=== PATIENT | female | born 1970 | race Two or more races ===

== ENCOUNTER 2017-10-18 15:27 | Emergency (ER) | payer SELFPAY ==
[~2017-10-18] VITALS: Ht 152.4 cm; Wt 62.6 kg
--- NOTE | 2017-10-18 15:34 | NUR ---
AAOX3, BIBRA 89 C/O MIDSTERNAL CHEST PAIN RADIATES TO BACK. RR IS EVEN AND UNLABORED WITH NAD NOTED. SKIN IS WARM AND DRY. PLACED ON THE MONITOR. AWAITING MD FOR EVAL.
[2017-10-18] MEDS ORDERED: KETOROLAC TROMETHAMINE INJ 30 MG/ML VIAL ONE (16:17)
[2017-10-18 16:19] LABS: BASOPHILS % (AUTO) 0.6 % (0.0-2.0); EOSINOPHILS # (AUTO) 0.1 /CMM (0.0-0.7); EOSINOPHILS % (AUTO) 0.9 % (0.0-6.0); HEMATOCRIT 40 % (33-45); HEMOGLOBIN 13.4 g/dL (11.5-14.8); LYMPHOCYTES # (AUTO) 2.9 /CMM (0.8-4.8); LYMPHOCYTES % (AUTO) 37.1 % (20.0-44.0); MEAN CORPUSCULAR HEMOGLOBIN 30 PG (26.0-33.0); MEAN CORPUSCULAR HGB CONC 34 g/dl (31.0-36.0); MEAN CORPUSCULAR VOLUME 89 fL (82-100); MONOCYTES # (AUTO) 0.5 /CMM (0.1-1.30); MONOCYTES % (AUTO) 6.8 % (2.0-12.0); NEUTROPHILS # (AUTO) 4.3 /CMM (1.8-8.9); NEUTROPHILS % (AUTO) 54.6 % (43.0-81.0); PLATELET COUNT (AUTO) 255 /CMM (150-450); RDW COEFFICIENT OF VARIATION 12.1 (11.5-15.0); RED BLOOD CELL COUNT(AUTO) 4.46 MIL/uL (4.0-5.2); WHITE BLOOD COUNT (AUTO) 7.8 K/uL (4.3-11.0)
[2017-10-18] MEDS ORDERED: QUET25TA PO (16:23)
[2017-10-18] MEDS ORDERED: SERT50TA PO (16:23)
[2017-10-18] MEDS ORDERED: PANT40TA4 PO (16:23)
[2017-10-18] MEDS ORDERED: ALLO100T PO (16:23)
[2017-10-18] MEDS ORDERED: ATOR20TA PO (16:23)
[2017-10-18] MEDS ORDERED: ALBU1.257 IH (16:23)
[2017-10-18] MEDS ORDERED: ASPI-1152 PO (16:23)
[2017-10-18] MEDS ORDERED: CHOL200026 PO (16:23)
[2017-10-18] MEDS ORDERED: TIOT18CA3 IH (16:23)
[2017-10-18] MEDS ORDERED: PRED20TA PO (16:23)
[2017-10-18] MEDS ORDERED: MIRT7.5T10 PO (16:23)
[2017-10-18] MEDS ORDERED: METO-356 PO (16:23)
[2017-10-18 16:28] LABS: CALCIUM, SERUM 8.9 mg/dL (8.5-10.1); CARBON DIOXIDE 25 mmol/L (21-32); CHLORIDE 103 mmol/L (98-107); CREATININE 0.7 mg/dL (0.6-1.3); GLUCOSE 107 mg/dL (74-106); POTASSIUM 3.3 mmol/L (3.5-5.1); SODIUM SERUM 137 mmol/L (136-145); UREA NITROGEN, BLOOD 11 mg/dL (7-18)
[2017-10-18] MEDS ORDERED: KETOROLAC TROMETHAMINE INJ 30 MG/ML VIAL IV ONE (16:30)
[2017-10-18 16:33] LABS: INR 0.89 (0.85-1.15)
[2017-10-18 16:38] LABS: TROPONIN I < 0.017 ng/mL (0.00-0.056)
[2017-10-18] MEDS ORDERED: POTASSIUM CHLORIDE 20 MEQ TAB.PRT.SR PO ONE ×2 (17:23→17:30)
--- NOTE | 2017-10-18 19:13 | NUR ---
Patient is resting comfortably in bed with eyes closed. Easily aroused. VSS. REPORT GIVEN TO PM NURSES FOR JASON
--- NOTE | 2017-10-18 19:22 | NUR ---
RECEIVED REPORT FROM AM SHIFT JAGRUTI PIERCE. PT RESTING IN BED QUIETLY, NO ACUTE DISTRESS NOTED, RESP EVEN AND UNLABORED. PT DENIES PAIN OR DISCOMFORT AT THIS TIME. CALL CHELSEA SHARMA. WILL CONTINUE TO MONITOR PT CLOSELY.
--- NOTE | 2017-10-18 19:31 | NUR ---
IV removed. Catheter intact and site benign. Pressure and 4x4 applied to site. No bleeding noted. Patient discharged to home in stable condition. Written and verbal after care instructions given. Patient verbalizes understanding of instruction. ambulatory with a steady gait noted. pt aaox4 no acute distress noted, resp even and unlabored. pt family members at bedside to take pt home.
[2017-10-18 19:32] VITALS: BP 117/64
== END 2017-10-18 19:32 | disposition home or self-care (01) ==
LOC: ER 15:29
DX: R07.89 Other chest pain (principal); E87.6 Hypokalemia; I10 Essential (primary) hypertension; Z86.73 Personal history of transient ischemic attack (TIA), and cerebral infarction without residual deficits; Z79.82 Long term (current) use of aspirin
CPT/HCPCS: 36415; 71045-TC; 80048-TC; 84484-TC; 84703-TC; 85025-TC; 85730-TC; A4606; J1885; Z7610